=== PATIENT | female | born 2000 | race Asian ===

== ENCOUNTER 2021-11-18 16:39 | Outpatient (CLI) | payer OTHER | END 2021-11-18 19:47 | disposition home or self-care (01) | LOC: RAD 16:39 | PROVIDERS: ATTEND Nurse Practitioner Family | DX: M54.6 Pain in thoracic spine (principal); M54.50 Low back pain, unspecified ==

== ENCOUNTER 2021-11-25 14:56 | Outpatient (CLI) | payer OTHER | END 2021-11-25 19:00 | disposition home or self-care (01) | LOC: RAD 14:56 | PROVIDERS: ATTEND Nurse Practitioner Family | DX: M25.512 Pain in left shoulder (principal) ==

== ENCOUNTER 2021-12-23 09:51 | Outpatient (CLI) | payer OTHER | END 2021-12-23 18:50 | disposition home or self-care (01) | LOC: LABW 09:51 | PROVIDERS: ATTEND Nurse Practitioner Family | DX: N92.5 Other specified irregular menstruation (principal) | CPT/HCPCS: 36415; 84702 ==

== ENCOUNTER 2021-12-24 08:15 | Emergency (ER) | payer OTHER ==
[~2021-12-24] VITALS: Ht 160 cm; Wt 75.3 kg
[2021-12-24 08:27] VITALS: BP 124/52; TEMP 97.6
== END 2021-12-24 09:09 | disposition home or self-care (01) ==
LOC: ED 08:15
DX: S70.01XA Contusion of right hip, initial encounter (principal); V49.40XA Driver injured in collision with unspecified motor vehicles in traffic accident, initial encounter; Y92.89 Other specified places as the place of occurrence of the external cause; Z3A.01 Less than 8 weeks gestation of pregnancy
CPT/HCPCS: 99282

== ENCOUNTER 2022-12-12 19:02 | Emergency (ER) | payer OTHER ==
[~2022-12-12] VITALS: Ht 160 cm; Wt 86.2 kg
[2022-12-12 21:20] VITALS: BP 128/75; TEMP 98.9
== END 2022-12-12 21:20 | disposition home or self-care (01) ==
LOC: ED 19:02
DX: J02.0 Streptococcal pharyngitis (principal)
CPT/HCPCS: 87502; 87651; 96372; 99283; J0696

== ENCOUNTER 2022-12-17 08:00 | Emergency (ER) | payer OTHER ==
[~2022-12-17] VITALS: Ht 160 cm; Wt 86.2 kg
[2022-12-17 08:20] VITALS: BP 118/80; TEMP 97.4
== END 2022-12-17 09:04 | disposition home or self-care (01) ==
LOC: ED 08:00
DX: S90.861A Insect bite (nonvenomous), right foot, initial encounter (principal); W57.XXXA Bitten or stung by nonvenomous insect and other nonvenomous arthropods, initial encounter
CPT/HCPCS: 99281

== ENCOUNTER 2023-03-01 12:16 | Emergency (ER) | payer OTHER ==
[~2023-03-01] VITALS: Ht 160 cm; Wt 94.8 kg
[2023-03-01 12:21] VITALS: BP 126/64; TEMP 98.7
[2023-03-01 13:03] LABS: PLATELET COUNT 369 K/uL (152-353)
[2023-03-01 13:31] LABS: POTASSIUM 4.5 mmol/L (3.6-5.2)
== END 2023-03-01 14:08 | disposition home or self-care (01) ==
LOC: ED 12:16
PROVIDERS: Family Medicine
DX: N92.0 Excessive and frequent menstruation with regular cycle (principal); E66.9 Obesity, unspecified
CPT/HCPCS: 80053; 80307; 81002; 85027; 99283; J1885